=== PATIENT | female | born 1975 | race Caucasian/White ===

== ENCOUNTER 2017-08-06 06:45 | Inpatient (IN) | payer SELFPAY ==
[2017-08-06 07:15] VITALS: BMI 34.5
[2017-08-06] MEDS: Lactated Ringers 1,000 ML 50 ML IV ×2 (07:30→11:12)
[2017-08-06 07:53] LABS: Hematocrit 35.7 % (37-47); Hemoglobin 12.2 g/dl (12.0-15.0); Mean Corp Hgb Conc 34.2 g/gl (32-36); Mean Corpuscular Hgb 30.9 pg (27.0-32.0); Mean Corpuscular Volume 90.4 fL (81-99); Platelet Count 223 K/mm3 (150-450); RBC Distribution Width CV 13.9 % (11.6-14.6); RBC Distribution Width SD 44.9 fl (35.1-43.9); Red Blood Count 3.95 M/mm3 (4.2-5.4); White Blood Count 9.9 K/mm3 (4.4-11.0)
[2017-08-06 07:55] LABS: Scan Indicated on CBC? Y/N NO
[2017-08-06] MEDS: Oxytocin 30 units/NS 500 ml 30 UNITS/500 ML IV.SOLN IV (08:15)
[2017-08-06] MEDS: Oxytocin 30 units/NS 500 ml 30 UNITS/500 ML IV.SOLN 334 UNITS IV (12:43)
--- NOTE | 2017-08-06 12:53 | PCM.OB.VAG ---
Vaginal Delivery Maternal Presentation: Elective Induction Method of Induction: Pitocin, Amniotomy Amniotic Membrane Rupture Type: Artificial Amniotic Fluid Description: Clear Final TANIKA: 08/11/17 Final TANIKA Source: US <20 weeks Gestational age: 39 Weeks and 2 Days Date of Procedure: 08/06/17 Pre-Operative Diagnosis: IUP Post-Operative Diagnosis: IUP Surgery/ Procedure Performed: Spontaneous Vaginal Delivery Type of Anesthesia: Epidural Description of Procedure: Viable Female Apgars 8/9 Placenta 3V WNL; CAN x 1 loose; No episiotomy; 4th degree ML laceration repaired in layers with 3-0 Rapide suture; sponge counts OK; Kiwi vacuum used x 1 gentle pull from low outlet to expedite delivery of the head due to deep decelerations with pushing; Delivery Physician: Abdiel Reinoso MD. Presentation: Vertex Placental Delivery Description: Spontaneous Placenta Disposition: [facility] Cord Vessel Description: 3 Vessels Cord Entanglement: Around neck x 1, loose Estimated Blood Loss: 250cc Infant A gender: Female (1 minute): 8 (5 minute): 9 Episiotomy Description: None Laceration: Midline, Perineal Extension/lac, 4th Degree Medications given after delivery: IV Pitocin Complications: None
--- NOTE | 2017-08-06 12:59 | DCINST_ITS ---
Discharge Diet: No Restrictions Discharge Activity: May Shower, May Take a Tub Bath May resume sexual activity in: 4-6 weeks Additional Activity Instructions:: Nothing in the vagina for 4-6 weeks. You may return to work/school in 6 weeks. Call your doctor if you observe: Fever of 101 or Higher, Inability to urinate, Inability to have a bowel movement, Using more than one pad per hour Additional Instructions: If you experience any of the following, contact your healthcare provider. * Bleeding that soaks a pad every hour for 2 hours * Unrelieved incision or abdominal pain * Swelling, redness, discharge or bleeding from your incision or episiotomy site * Your incision begins to separate * Problems urinating (including inability to urinate or burning while urinating) . * Visual changes * Severe headache * Flu-like symptoms * Pain or redness in one of both of your breasts * Pain, warmth, tenderness or swelling in your legs, especially the calf area * Frequent nausea and vomiting * Symptoms of depression or anxiety If you experience any of the following, call 911 or go to the nearest Emergency Room. * Chest pain * Problems breathing * Seizure activity * Partial or complete paralysis of a body part, slurred speech, weakness or drooping of the face, or a sudden inability to walk or hold your balance Allergies/Adverse Reactions: Allergies No Known Allergies Allergy (Verified 08/06/17 08:15) Medications to take at Discharge Docusate Sodium [Colace] 100 mg PO BID PRN PRN #60 cap 08/06/17 Vits [Prenatabs FA] 1 tablet PO DAILY 08/06/17 The following prescriptions were given: Docusate Sodium [Colace] 100 mg PO BID PRN PRN #60 cap PRN Reason: Constipation Please Follow Up With: Abdiel Reinoso MD - [phone] When: Call to make an appointment with your doctor in 6 weeks. Primary Care Physician: Care Physician,No Primary [Primary Care Provider] -
[2017-08-06] MEDS: Oxytocin 30 units/NS 500 ml 30 UNITS/500 ML IV.SOLN 167 UNITS IV (13:14)
[2017-08-06] MEDS: Methylergonovine 0.2 MG/ML Ampul IM (13:47)
--- NOTE | 2017-08-06 16:20 | NURSING ---
throwing sponges into collection bag after use.
--- NOTE | 2017-08-06 16:25 | NURSING ---
pt up to bathroom and unable to urinate. Pt stated her bladder felt full. Fundus slightly to the left and at U. Will try to get patient up again to try more and catheter pt if unable to go. Last strait cathed by Dr. Reinoso during pushing at 1150 for approximately 300 cc of clear yellow urine. Pt stated she had to have a catheter overnight her last delivery as well.
[2017-08-06] MEDS: Ibuprofen 600 MG Tablet PO (16:35)
[2017-08-06 17:00] VITALS: BP 139/76; PULSE 99; RESP 18; TEMP 36.8
--- NOTE | 2017-08-06 17:31 | NURSING ---
Output included 1 void during labor, [address] Reinoso during labor, and 1 hannah insertion after recovery due to patient not being able to void and uterine displacement during fundal checks- 900 cc obtained and pt very swollen. Pt also complaining of pain/ pressure and the need to urinate. Dr. Reinoso's office called. Spoke with Danii Haney, Dr. Reinoso was not there but she would pass on to Dr. Antonio Angel who is oncology consultant this evening.
[2017-08-06 20:35] VITALS: BP 123/79; PULSE 99; RESP 18; TEMP 36.4
[2017-08-06] MEDS: Senna/Docusate Sodium 1 Tablet PO (21:50)
[2017-08-06 23:15] VITALS: BP 110/63; PULSE 90; RESP 18; TEMP 36.8; O2SAT 94
[2017-08-07 03:55] VITALS: BP 115/71; PULSE 89; RESP 18; TEMP 36.3; O2SAT 95
[2017-08-07 04:22] LABS: Hematocrit 35.3 % (37-47); Hemoglobin 12.1 g/dl (12.0-15.0); Mean Corp Hgb Conc 34.3 g/gl (32-36); Mean Corpuscular Hgb 31.1 pg (27.0-32.0); Mean Corpuscular Volume 90.7 fL (81-99); Mean Platelet Vol. 10.1 fl (6.2-12.0); Platelet Count 203 K/mm3 (150-450); RBC Distribution Width CV 14.1 % (11.6-14.6); Red Blood Count 3.89 M/mm3 (4.2-5.4); White Blood Count 16.8 K/mm3 (4.4-11.0)
[2017-08-07 04:34] LABS: Scan Indicated on CBC? Y/N NO
[2017-08-07] MEDS: Ibuprofen 600 MG Tablet PO ×2 (07:44→22:22)
[2017-08-07 07:50] VITALS: BP 114/70; PULSE 86; RESP 16; TEMP 36.1; O2SAT 95
--- NOTE | 2017-08-07 08:31 | PCM.PN.OB ---
Subjective: PPD#1 Doing well. Slightly painful. 4th deg. has Hannah catheter in place and asking about having that removed today. Nursing baby girl very well. - Physical Exam General: Alert, Oriented x3, Cooperative, No apparent distress HEENT: Atraumatic Neck: Supple Abdomen: Soft - Fundus firm NT at 1 cm inferior to umbilicus Skin: - - Peripad with mod lochia rubra. Anterior perineum with minimal swelling. Hannah in place. Neurological: Cranial nerves II-XII grossly intact Psych/Mental Status: Normal Affect Vital Signs Temp Pulse Resp BP Pulse Ox 97 F L 86 16 114/70 95 08/07/17 07:50 08/07/17 07:50 08/07/17 07:50 08/07/17 07:50 08/07/17 07:50 Oxygen Delivery Method Room Air Weight: 82.9 kg Body Mass Index (BMI) 34.5 Intake and Output for Last 24 Hours 08/05/17 08/06/17 08/07/17 23:59 23:59 23:59 Intake Total 2531 / 2531 Output Total 2049 / 2049 450 / 450 Balance 481 / 481 -450 / -450 Laboratory Tests Past 24 Hrs 08/06/17 08/07/17 07:30 04:10 WBC 16.8 H RBC 3.89 L Hgb 12.1 Hct 35.3 L MCV 90.7 MCH 31.1 MCHC 34.3 RDW 14.1 RDW Differential 46.0 H Plt Count 203 MPV 10.1 Blood Type A POSITIVE Antibody Screen NEGATIVE Assessment/Plan PPE#1 Vaginal delivery, 4th deg laceration Doing well. Continue care. Anticipate dischg home tomorrow. D/C hannah today.
[2017-08-07 12:00] VITALS: BP 116/72; PULSE 95; RESP 16; TEMP 36.4
[2017-08-07 16:30] VITALS: BP 125/79; PULSE 99; RESP 16; TEMP 36.7
[2017-08-07 20:33] VITALS: BP 129/78; PULSE 102; RESP 18; TEMP 36.9; O2SAT 96
--- NOTE | 2017-08-07 20:37 | NURSING ---
Varicose veins in right leg. Pt noting some discomfort. Palpates soft, no reddening or warmth noted. Negative taras's sign bilterally. Will continue to monitor. Pt to inform RN if any changes noted.
[2017-08-07] MEDS: Senna/Docusate Sodium 1 Tablet PO (22:22)
[2017-08-08 02:45] VITALS: BP 127/71; PULSE 100; RESP 18; TEMP 36.4; O2SAT 97
--- NOTE | 2017-08-08 08:07 | PCM.PN.OB ---
Subjective: PPD#2 vaginal delivery with 4th degree laceration Doing well and ready to go home today. Varicosities at R leg, has support hose at home. breast feeding. Baby to have additional bili level at approx noon. - Physical Exam General: Alert, Oriented x3, Cooperative, No apparent distress HEENT: Atraumatic Abdomen: Soft - fundus firm NT inferior to umbilicus Extremities: No clubbing, No cyanosis - varicose vv noted, soft with tenderness at medial R knee and slightly firm at that location. Lower leg with minimal varicosities. Vital Signs Temp Pulse Resp BP Pulse Ox 97.6 F L 100 18 127/71 H 97 08/08/17 02:45 08/08/17 02:45 08/08/17 02:45 08/08/17 02:45 08/08/17 02:45 Oxygen Delivery Method Room Air Weight: 82.9 kg Body Mass Index (BMI) 34.5 Intake and Output for Last 24 Hours 08/06/17 08/07/17 08/08/17 23:59 23:59 23:59 Intake Total 2531 / 2531 Output Total 2049 / 2049 650 / 650 Balance 481 / 481 -650 / -650 Assessment/Plan PPE#2 Vaginal delivery, 4th deg laceration Stable pp. Dischg home today. RTO in 6 wk for PP check. Varicose veins. R leg more prominent veins with sl tender and firm superficial varicosity at R knee, medial aspect. Derian hose, thigh high ordered. Encouraged to take Advil at least tid.
--- NOTE | 2017-08-08 08:46 | NURSING ---
0830 Area on the inner aspect of the right knee with protruding vein. Pt denies discomfort. No redness or warmth noted, Francy's sign negative. Pt states she has been wearing thigh high support stockings during the . Encouraged to continue to wear them and notify MD if area becomes painful, reddened or warm to touch. Dr. Pena aware.
[2017-08-08 10:00] VITALS: BP 119/80; PULSE 102; RESP 18; TEMP 36.6
[2017-08-08 14:00] VITALS: BP 130/84; PULSE 100; RESP 16; TEMP 36.6
--- NOTE | 2017-08-08 15:24 | NURSING ---
1500 Discharged to home with baby via wheelchair to car. Patient states that she is ready to go home and feels able to care for herself and her baby.
--- NOTE | 2017-08-08 17:47 | NURSING ---
1200 Measured for thigh high teds. Provided pt with an appropriate size and encouraged her to try them on before she left. States she tried them on and they fit perfectly.
== END 2017-08-08 15:00 | disposition home or self-care (01) | DRG 775 ==
PROVIDERS: Obstetrics & Gynecology; Admitting Provider Obstetrics & Gynecology; Visit Provider Obstetrics & Gynecology
DX: O76 Abnormality in fetal heart rate and rhythm complicating labor and delivery (principal); O70.3 Fourth degree perineal laceration during delivery; O69.81X0 Labor and delivery complicated by cord around neck, without compression, not applicable or unspecified; O87.4 Varicose veins of lower extremity in the puerperium; Z37.0 Single live birth; Z3A.39 39 weeks gestation of pregnancy
CPT/HCPCS: 59025; 59050; 85027; 86850; 86900; 99218; J7120; G0378

== ENCOUNTER → 2018-05-05 15:36 | Outpatient (CLI) | payer OTHER, SELFPAY ==
[2018-05-08 13:30] LABS: HPV Reflexed? NOT INDICATED
== END ==
PROVIDERS: Visit Provider Obstetrics & Gynecology
DX: Z12.4 Encounter for screening for malignant neoplasm of cervix (principal)
CPT/HCPCS: 87624; 88175; G0145

== ENCOUNTER → 2019-11-28 17:09 | Outpatient (CLI) | payer SELFPAY ==
[2017-10-22 12:07] VITALS: BMI 25.7
[2019-12-01 08:22] LABS: HPV Reflexed? NOT INDICATED
== END ==
PROVIDERS: Visit Provider Obstetrics & Gynecology
DX: Z12.4 Encounter for screening for malignant neoplasm of cervix (principal)
CPT/HCPCS: 88175; G0145